=== PATIENT | female | born 2000 | race Caucasian/White ===

== ENCOUNTER 2024-07-11 17:58 | Emergency (ER) | payer BC, SELFPAY ==
[2024-07-11 18:38] VITALS: BP 108/78; PULSE 86; RESP 16; TEMP 37.1; O2SAT 99
--- NOTE | 2024-07-11 18:41 | ED.URI ---
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 Symptoms began last night, worsened throughout the day today. Patient is declining COVID and flu testing. Requesting strep only. Reports worse symptoms are headache, body aches, fever, sore throat. Has mild cough. Has not been taking anything for symptoms. Voices no other concerns or complaints today. Related Data Home Medications Medication Instructions Recorded Confirmed lisdexamfetamine 50 mg chewable 50 mg PO DAILY 07/11/24 07/11/24 tablet (Vyvanse) Allergies Allergy/AdvReac Type Severity Reaction Status Date / Time cashew nut Allergy Anaphylaxis Verified 07/11/24 18:34 Review of Systems Review of Systems: All systems reviewed & are unremarkable except as noted in HPI and below Constitutional: Constitutional: Reports as per HPI and Reports no additional constitutional complaints ENT: Reports system reviewed and no additional complaints, except as documented, Reports as per HPI, Reports nasal congestion, Reports nasal discharge and Reports sore throat Cardiovascular: Cardiovascular: Reports no additional cardiovascular complaints Respiratory: Respiratory: Reports no additional respiratory complaints and Reports cough Gastrointestinal: Gastrointestinal: Reports no additional gastrointestinal complaints PMFSH Comments At the time of my signature, I reviewed and agree with the nursing past medical, surgical, social, and family history. There is no relevant family history pertinent to the patient complaint. Exam Const: General: cooperative, no acute distress, alert and awake Orientation/consciousness: oriented to person, oriented to place and oriented to time HENMT: Head: normal to inspection Ears: TM's normal bilaterally Mouth: Yes moist mucous membranes Throat: posterior oropharynx abnormal erythema Resp: Effort & Inspection: normal respiratory effort and able to speak in complete sentences Auscultation: clear to auscultation bilaterally, no crackles, no rales, no rhonchi and no wheezes Cardio: Palpation: normal PMI Rate: regular rate Rhythm: regular rhythm Heart sounds: S1 normal heart sound present and S2 normal heart sound present Neuro: General: oriented to person, oriented to place and oriented to time Cranial nerves: Yes CN's II-XII intact bilaterally Psych: Appearance: grossly normal Thought process: Normal thought process present Insight: Good insight present (Psych) Judgement: Good judgement present (Psych) Course Course Level of Care: Express Care Visit Vital Signs Vital signs: Vital Signs Temperature 98.7 F 07/11/24 18:38 Pulse Rate 86 07/11/24 18:38 Respiratory Rate 16 07/11/24 18:38 Blood Pressure 108/78 07/11/24 18:38 Pulse Oximetry 99 07/11/24 18:38 Temperature 98.7 F 07/11/24 18:38 Pulse Rate 86 07/11/24 18:38 Respiratory Rate 16 07/11/24 18:38 Blood Pressure 108/78 07/11/24 18:38 Pulse Oximetry 99 07/11/24 18:38 Reviewed MDM - URI/Sore Throat MDM Narrative Medical decision making narrative: Negative strep, culture pending. Reassuring physical exam. Follow with primary care provider. Emergency department for new or worsening symptoms. Discharge instructions reviewed with patient, as well as provided in writing per nursing staff. The instructions also include specific and strict return/GO TO THE ER as well as f/u information. All questions have been answered, and the patient deny any further questions with discharge and discharge plan. Some parts of this dictation were generated by voice recognition software and may contain typographical and/o
[2024-07-11 18:49] LABS: EDSTREPNEGPOS1 Negative (Negative)
== END 2024-07-11 19:17 | disposition home or self-care (01) ==
PROVIDERS: Emergency Provider Nurse Practitioner Family
DX: B34.9 Viral infection, unspecified (principal); F90.9 Attention-deficit hyperactivity disorder, unspecified type
CPT/HCPCS: 87081; 87880; 99203; G0463

== ENCOUNTER 2024-07-14 23:06 | Emergency (ER) | payer SELFPAY ==
[2024-07-14 23:12] VITALS: BP 112/73; PULSE 102; RESP 19; TEMP 37.3; O2SAT 100
--- NOTE | 2024-07-15 00:30 | PC.NURSE ---
Pt and mother approached triage desk saying that they were going to leave due to wait times. Pt advised to be seen at pcp or ED for new or worsening symptoms.
== END 2024-07-15 01:05 | disposition left against medical advice (07) ==
LOC: ANHED 07-15 00:51
DX: R05.9 Cough, unspecified (principal)
CPT/HCPCS: 99199

== ENCOUNTER 2024-07-15 11:07 | Emergency (ER) | payer BC, SELFPAY ==
--- NOTE | ~2024-07-15 | XR_ITS ---
EXAMINATION: XR chest 2V DATE: 07/15/2024 12:00 INDICATION: Cough and fever. TECHNIQUE: Frontal and lateral views of the chest were obtained. COMPARISON: None. FINDINGS: There is no pneumonia, pleural effusion, or pneumothorax. The heart size is normal. IMPRESSION: 1. No acute cardiopulmonary disease. Reviewed, dictated and finalized at location A.
[2024-07-15 11:20] VITALS: BP 103/62; PULSE 94; RESP 16; TEMP 37.3; O2SAT 99
--- NOTE | 2024-07-15 11:53 | ED.URI ---
HPI - URI/Sore Throat General Chief Complaint: Upper Respiratory Infection Stated Complaint: cough Time Seen by Provider: 07/15/24 11:35 Source: patient, RN notes reviewed and old records reviewed Mode of arrival: ambulatory Limitations: no limitations History of Present Illness HPI Narrative: 24 year old female who presents to [facility] care with complaints of having 5 day history of fever, cough which is at times productive. She was seen in the clinic Sunday night and tested for strep, patient refused COVID and Flu testing .Patient has taken some Tylenol for fever but has not taken any medication for her cough. Patient reports that symptoms started on night and has had increased cough and fevers up to 101.8F highest which was last night. Patient reports that she went to the ED last night due to fever but left before being seen because of wait time. Patient reports that she didn't take any Tylenol this morning so would have true reading on her temperature which is 99.1F in clinic today. Patient states that she has lost about 8 pounds since being ill,does not have much appetite.reports that she is drinking fluids well. MD elicited complaint: fever and cough Onset (ago): day(s) (5) Severity: moderate Pain scale (0-10): 2 Description of mucous: clear Able to tolerate fluids by mouth: Yes Associated symptoms: fever and cough Treatments prior to arrival: acetaminophen Related Data Home Medications Medication Instructions Recorded Confirmed lisdexamfetamine 50 mg chewable 50 mg PO DAILY 07/11/24 07/15/24 tablet (Vyvanse) Allergies Allergy/AdvReac Type Severity Reaction Status Date / Time cashew nut Allergy Anaphylaxis Verified 07/15/24 11:22 Review of Systems Review of Systems: CONSTITUTIONAL: Reports malaise, chills, sweats, or fever. EYES: Denies visual changes, redness, or discharge. ENT: Reports rhinorrhea, congestion,no sinus pain, no otalgia and no present sore throat. CARDIOVASCULAR: Denies chest pain, palpitations, or edema. RESPIRATORY: Reports cough.? Denies dyspnea. GASTROINTESTINAL: Denies abdominal pain, nausea, vomiting, diarrhea, states decreased appetite SKIN: Denies rash or itching. MUSCULOSKELETAL: Denies myalgia. NEUROLOGIC: Denies headache. All systems reviewed & are unremarkable except as noted in HPI and below PMFSH Past Medical History Medical History ADHD (attention deficit hyperactivity disorder) Anorexia Social History Social History (Updated 07/15/24 @ 14:53 by Prerna Dumont NP) Smoking status: Never smoker Alcohol intake: unknown Substance use: unknown Gender identity (if verbalized by the patient): Female Comments At time of signature, agree with nursing past medical, surgical, social and family history. There is no relevant family history pertinent to the presenting complaint Exam Narrative: GENERAL: Well-appearing, well-nourished, and in no acute distress. HEAD: Normocephalic EYES: PERRLA, conjunctivae clear ENT: Nares clear, turbinates edematous and erythematous, clear discharge. Mucous membranes moist. TM pearly hernandez with dull light reflex bilaterally; no tragal tenderness. Oropharynx erythematous without lesions. Tonsils not enlarged and without exudate, no drooling, no hoarseness, no trismus, uvula midline., some post nasal drainage noted. NECK: Supple. No lymphadenopathy CHEST: Clear to auscultation, breath sounds equal. No wheezing, rhonchi, rales, or stridor. No respiratory distress, speaks in full sentences.cough noted SAO2 99% on room air HEART: Regular rate and rhythm. No murmur heard. SKIN: Warm, dry, no rash. NEURO: Alert and oriented x3. PSYCH: Normal mood and affect, anxious Course Course Emergency Course: Patient is aware of diagnosis, understands and agrees to treatment plan.? Anticipatory guidance given.? Patient agrees to follow-up as directe
== END 2024-07-15 12:28 | disposition home or self-care (01) ==
PROVIDERS: Emergency Provider Registered Nurse
DX: J06.9 Acute upper respiratory infection, unspecified (principal); R05.1 Acute cough; F90.9 Attention-deficit hyperactivity disorder, unspecified type
CPT/HCPCS: 71046; 99213; G0463

== ENCOUNTER 2024-07-17 03:58 | Emergency (ER) | payer BC, SELFPAY ==
--- NOTE | ~2024-07-17 | XR_ITS ---
Clinical Indication: Fever, cough PA and lateral views of the chest: Comparison: 07/15/2024 Findings: Possible focal retrocardiac airspace opacity. Right lung clear. Cardiomediastinal silhouet te is within normal limits. Bones and soft tissues are unremarkable. Impression: Possible focal left lower lobe atelectasis versus pneumonia. Correlate clinically. Reviewed, dictated and finalized at location . Impression: Possible focal left lower lobe atelectasis versus pneumonia. Correlate clinical ly.
[2024-07-17 03:59] VITALS: BP 102/64; PULSE 128; RESP 19; TEMP 38.2; O2SAT 97
[2024-07-17 04:53] LABS: Strep Group A RT-PCR NOT DETECTED (Negative)
[2024-07-17 06:16] VITALS: RESP 15; O2SAT 100
[2024-07-17 06:26] VITALS: BP 98/60; PULSE 94; RESP 16; TEMP 37.9; O2SAT 100
--- NOTE | 2024-07-17 06:44 | ED.GENADULT ---
HPI - General Adult General Chief complaint: Fever Stated complaint: fever Time Seen by Provider: 07/17/24 04:23 History of Present Illness HPI narrative: 24-year-old female presents to the emergency department complaining of cough congestion and fever that is been ongoing for the last 7 days. Patient reports that she has had follow-up with multiple urgent cares and feels that her symptoms are continue to worsen. Related Data Home Medications Medication Instructions Recorded Confirmed lisdexamfetamine 50 mg chewable 50 mg PO DAILY 07/11/24 07/15/24 tablet (Vyvanse) Allergies Allergy/AdvReac Type Severity Reaction Status Date / Time cashew nut Allergy Anaphylaxis Verified 07/17/24 03:58 Review of Systems Review of Systems: All systems reviewed & are unremarkable except as noted in HPI and below PMFSH Past Medical History Medical History ADHD (attention deficit hyperactivity disorder) Anorexia Social History Social History (Updated 07/15/24 @ 14:53 by Prerna Dumont NP) Smoking status: Never smoker Alcohol intake: unknown Substance use: unknown Gender identity (if verbalized by the patient): Female Exam Narrative: APPEARANCE: Well appearing, no pain, no distress, well-nourished. HEAD: normocephalic, atraumatic. EYES: PERRLA/EOMI, conjunctivae clear. NOSE: Normal no drainage EARS:TMS clear with good light reflex. THROAT: Pharynx clear, no exudate. NECK: Supple. No adenopathy, no masses. RESPIRATORY: Airway patent, respirations nonlabored. Clear to auscultation bilaterally, no rales, rhonchi, wheezing. CARDIOVASCULAR: Regular rate and rhythm without murmurs rubs or gallops. ABDOMINAL: Soft, nontender, nondistended, normal bowel sounds MUSCULOSKELETAL: Moves all extremities. Strength/ROM intact, No edema, No calf tenderness. NEURO: Alert. Cranial nerves II through XII intact. Grossly intact SKIN: Warm, dry. Normal Color Course Vital Signs Vital signs: Vital Signs Temperature 100.8 F H 07/17/24 03:59 Pulse Rate 128 H 07/17/24 03:59 Respiratory Rate 19 07/17/24 03:59 Blood Pressure 102/64 07/17/24 03:59 Pulse Oximetry 97 07/17/24 03:59 Oxygen Delivery Room Air 07/17/24 03:59 Temperature 100.2 F H 07/17/24 06:26 Pulse Rate 85 07/17/24 07:12 Respiratory Rate 18 07/17/24 07:12 Blood Pressure 98/60 L 07/17/24 06:26 Pulse Oximetry 100 07/17/24 06:26 Oxygen Delivery Room Air 07/17/24 03:59 Medical Decision Making [facility] Narrative Medical decision making narrative: 24-year-old female presents emergency department for evaluation for cough and congestion this been going on for greater than 1 week. X-ray was concerning for pneumonia. Patient was started on Augmentin and a azithromycin and patient was also provided albuterol inhaler and Tessalon Perles for cough suppression. Patient was comfortable the plan for discharge and close follow-up. Differential Diagnosis Differential Diagnosis: COVID, influenza, RSV, pneumonia, pneumothorax Vital Signs Vital Signs: Vital Signs Temperature 100.8 F H 07/17/24 03:59 Pulse Rate 128 H 07/17/24 03:59 Respiratory Rate 19 07/17/24 03:59 Blood Pressure 102/64 07/17/24 03:59 Pulse Oximetry 97 07/17/24 03:59 Oxygen Delivery Room Air 07/17/24 03:59 Temperature 100.2 F H 07/17/24 06:26 Pulse Rate 85 07/17/24 07:12 Respiratory Rate 18 07/17/24 07:12 Blood Pressure 98/60 L 07/17/24 06:26 Pulse Oximetry 100 07/17/24 06:26 Oxygen Delivery Room Air 07/17/24 03:59 Lab Data Labs: Lab Results 07/17/24 Range/Units 04:13 Influenza A (RT-PCR) Negative (Negative) Influenza B (RT-PCR) Negative (Negative) RSV (RT-PCR) Negative (Negative) SARS-CoV-2 RNA (RT-PCR) Negative (Negative) Group A Strep (PCR) Not detected (Negative) Discharge Plan Discharge Clinical Impression: Pneumon
[2024-07-17] MEDS: ALBUTEROL SULFATE NEB 2.5 MG/3 ML INH INHALATION (06:54)
[2024-07-17 06:56] VITALS: PULSE 88; RESP 18
[2024-07-17] MEDS: AMOXICILLIN/CLAVULANATE K 875-125 MG TAB 1 TABLET PO (07:01)
[2024-07-17] MEDS: BENZONATATE 100 MG CAPSULE PO (07:01)
[2024-07-17] MEDS: KETOROLAC 30 MG/ML VIAL (*BKC) IM (07:01)
[2024-07-17] MEDS: AZITHROMYCIN 250 MG TABLET 500 MG PO (07:01)
[2024-07-17 07:12] VITALS: PULSE 85; RESP 18
[2024-07-17 07:25] LABS: Influenza A QL RT-PCR Negative (Negative); Influenza B QL RT-PCR Negative (Negative); RSV RNA, RT-PCR Negative (Negative); SARS-CoV-2 RNA PCR Negative (Negative)
== END 2024-07-17 07:27 | disposition home or self-care (01) ==
PROVIDERS: Emergency Provider Emergency Medicine
DX: J18.9 Pneumonia, unspecified organism (principal); Z20.822 Contact with and (suspected) exposure to COVID-19; F90.9 Attention-deficit hyperactivity disorder, unspecified type; Z79.899 Other long term (current) drug therapy
CPT/HCPCS: 71046; 87637; 87651; 94640; 94664; 96372; 99283; A9270; J1885

== ENCOUNTER 2024-07-29 16:15 | Emergency (ER) | payer SELFPAY ==
[2024-07-29 16:17] VITALS: BP 119/72; PULSE 73; RESP 21; TEMP 36.4; O2SAT 99
--- NOTE | 2024-07-29 16:30 | ED.ALLEREA ---
HPI - Allergic Reaction General Chief complaint: Allergic Reaction Stated complaint: Alergic Reaction Time Seen by Provider: 07/29/24 16:20 Source: patient Mode of arrival: ambulatory Limitations: no limitations History of Present Illness HPI narrative: Brenna is a 24-year-old female patient presenting to the clinic today with complaints of a possible allergic reaction. She reports that she ate a homemade protein bar made of peanut butter at the [facility] across the street and developed some tingling in the roof of her mouth. 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 She is concerned that there may be a cross contamination. Has some slight tingling to her tongue as well. Denies any difficulty swallowing, shortness of breath, difficulty breathing, or tongue swelling. She does not have her EpiPen at this time and felt as though it would be better to come over here to be evaluated that and go across town and get Benadryl. Related Data Home Medications Medication Instructions Recorded Confirmed lisdexamfetamine 50 mg chewable 50 mg PO DAILY 07/11/24 07/29/24 tablet (Vyvanse) Allergies Allergy/AdvReac Type Severity Reaction Status Date / Time cashew nut Allergy Anaphylaxis Verified 07/29/24 16:23 Review of Systems Review of Systems: Pertinent positives per HPI. Patient denies any fever, chills, rash, headache, visual changes, dizziness, cough, runny nose, sore throat, shortness of breath, chest pain, palpitations, nausea, vomiting, diarrhea, constipation, abdominal pain, or any urinary issues. PMFSH Past Medical History Medical History ADHD (attention deficit hyperactivity disorder) Anorexia Social History Social History Smoking status: Never smoker Alcohol intake: unknown Substance use: unknown Gender identity (if verbalized by the patient): Female Comments At the time of my signature, I reviewed and agree with the nursing past medical, surgical, social, and family history. There is no relevant family history pertinent to the patient complaint. Exam Narrative: General: Well-developed, well nourished, in no apparent distress Head: Normocephalic, atraumatic Eyes: Pupils equally round and reactive to light bilaterally, EOM intact, sclera and conjunctive clear, no discharge, lids normal Ears: TMs intact and clear, ear canals clear, no drainage, grossly hearing normal. Nose: Nares patent, no discharge, no inflammation, no sinus tenderness. Mouth: Oropharynx without lesions or masses, good dentition, MMM. Neck: Supple, trachea midline, no enlargement of anterior or posterior cervical nodes, no thyroid masses or goiter palpable. Cardio: Regular rate and rhythm, s1 and s2 normal, no murmur appreciated. Resp: Clear to auscultation bilaterally anteriorly and posteriorly, no rhonchi, rales, wheezing or rubs Course Course Emergency Course: Portions of this record may have been created with voice recognition software. Level of Care: Express Care Visit Vital Signs Vital signs: Vital signs reviewed MDM - Allergic Reaction MDM Narrative Medical decision making narrative: At the time of visit patient is resting comfortably on the exam table. Patient appears to be nontoxic. Plan: Patient is states that her tongue and refer her mouth or tingling. No sign of respiratory distress, tongue swelling, drooling, or difficulty breathing. Oxygenation is 99% on room air with clear lung sounds. Patient was given Benadryl 50 mg IM, Solu-Medrol 125 mg IM, and oral Pepcid in the clinic today. Will send in prescription for prednisone and Pepcid and have patient continue Benadryl. Supportive measures were discussed with the patient and they voiced understanding discharge instructions and agrees to treatment plan. Return precautions reviewed Differential Diagnosis Differential diagnosis: Likely anaphylax
[2024-07-29] MEDS: methylPREDNISolone SOD SUCC 125 MG VIAL IM (16:38)
[2024-07-29] MEDS: FAMOTIDINE 20 MG TABLET 40 MG PO (16:39)
[2024-07-29] MEDS: diphenhydrAMINE HCl INJ 50 MG/ML VIAL IM (16:39)
[2024-07-29 17:30] VITALS: BP 112/70; PULSE 70; RESP 18; O2SAT 99
== END 2024-07-29 17:30 | disposition home or self-care (01) ==
PROVIDERS: Emergency Provider Nurse Practitioner Family
DX: T78.40XA Allergy, unspecified, initial encounter (principal); F90.9 Attention-deficit hyperactivity disorder, unspecified type
CPT/HCPCS: 96372; 99214; A9270; G0463; J1200; J2919

== ENCOUNTER 2024-07-29 23:33 | Emergency (ER) | payer SELFPAY ==
[2024-07-29 23:33] VITALS: BP 117/69; PULSE 81; RESP 18; TEMP 36.2; O2SAT 98
[2024-07-29 23:44] VITALS: O2SAT 97
--- NOTE | 2024-07-30 00:57 | ED.ALLEREA ---
HPI - Allergic Reaction General Chief complaint: Allergic Reaction Stated complaint: allergy - exposure to cashew Time Seen by Provider: 07/29/24 23:42 Source: patient Mode of arrival: ambulatory Limitations: no limitations History of Present Illness HPI narrative: Patient is a 24-year-old female who presents the ED with concern for an allergic reaction. 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 She reports she was exposed to cashews today from a friend's homemade granola bar. States immediately after eating a granola bar she began having redness and flushing of her face, diffuse hives, tingling in her mouth. She was seen at an urgent care this afternoon and given Solu-Medrol, Benadryl, Pepcid. She states symptoms improved significantly. Approximately 1 hour prior to arrival, patient began having tingling of her lips, roof of her mouth, and tip of her to tongue. She did not have any allergy medications at home and prompted here for further evaluation. At the time of my eval, patient states sxs are resolved. Denies difficulty breathing or swallowing, denies swelling/tingling of lips/throat. Denies further rash or hives. Denies itching. Related Data Home Medications Medication Instructions Recorded Confirmed lisdexamfetamine 50 mg chewable 50 mg PO DAILY 07/11/24 07/29/24 tablet (Vyvanse) Allergies Allergy/AdvReac Type Severity Reaction Status Date / Time banana Allergy Anaphylaxis Verified 07/29/24 23:43 cashew nut Allergy Anaphylaxis Verified 07/29/24 23:43 shrimp Allergy Anaphylaxis Verified 07/29/24 23:43 Review of Systems Review of Systems: All systems reviewed & are unremarkable except as noted in HPI. All systems reviewed & are unremarkable except as noted in HPI and below PMFSH Past Medical History Medical History ADHD (attention deficit hyperactivity disorder) Anorexia Social History Social History Smoking status: Never smoker Alcohol intake: unknown Substance use: unknown Gender identity (if verbalized by the patient): Female Exam Narrative: GENERAL: Well appearing, thin, non-toxic, in no acute distress. HEAD: Normocephalic, atraumatic. ENT: No swelling of oral mucosa. MMs moist. RESPIRATORY: Airway patent, respirations nonlabored. Clear to auscultation bilaterally, no rales, rhonchi, wheezing. CARDIOVASCULAR: Regular rate and rhythm without murmurs, rubs, or gallops. MUSCULOSKELETAL: Moves all extremities. No gross deformities. SKIN: Warm, dry, normal color. No rash or urticaria. NEURO: A&O X3. Speech clear. PSYCHIATRIC: Appropriate mood and affect. Normal interaction. Course Vital Signs Vital signs: Vital Signs Temperature 97.1 F L 07/29/24 23:33 Pulse Rate 81 07/29/24 23:33 Respiratory Rate 18 07/29/24 23:33 Blood Pressure 117/69 07/29/24 23:33 Pulse Oximetry 98 07/29/24 23:33 Oxygen Delivery Room Air 07/29/24 23:33 Temperature 97.1 F L 07/29/24 23:33 Pulse Rate 76 07/30/24 01:09 Respiratory Rate 18 07/30/24 01:09 Blood Pressure 127/73 07/30/24 01:09 Pulse Oximetry 99 07/30/24 01:09 Oxygen Delivery Room Air 07/29/24 23:44 MDM - Allergic Reaction MDM Narrative Medical decision making narrative: VSS. No signs of anaphylaxis or ongoing allergic reaction by the time of my evaluation. Patient states symptoms are currently resolved. She was prescribed a short steroid course from urgent care today which she is due to begin tomorrow. She would like a dose of Benadryl here in the ED. This was given. Advised to buy Benadryl for home and use this as needed for further itching or further rash/hives. Advised to take steroids as prescribed. Discussed signs and symptoms of anaphylaxis and indications to use EpiPen at home. Given strict return precautions. She agrees with plan. Discharged in stab
[2024-07-30] MEDS: diphenhydrAMINE HCl CAP 25 MG CAPSULE PO (01:01)
[2024-07-30 01:09] VITALS: BP 127/73; PULSE 76; RESP 18; O2SAT 99
== END 2024-07-30 01:10 | disposition home or self-care (01) ==
PROVIDERS: Emergency Provider Physician Assistant
DX: T78.1XXA Other adverse food reactions, not elsewhere classified, initial encounter (principal); F90.9 Attention-deficit hyperactivity disorder, unspecified type; Z79.899 Other long term (current) drug therapy
CPT/HCPCS: 99283; A9270

== ENCOUNTER 2024-08-25 23:57 | Emergency (ER) | payer BC, SELFPAY ==
[2024-08-25 23:58] VITALS: BP 107/65; PULSE 59; RESP 16; TEMP 36.5; O2SAT 100
--- NOTE | 2024-08-26 00:06 | PC.NURSE ---
Bella @ [facility] notified - [id number] - Pt is cleared, no concerns on their end.
--- NOTE | 2024-08-26 00:14 | PC.NURSE ---
edp july to see pt in triage bay 2
--- NOTE | 2024-08-26 00:19 | ED_ITS ---
HPI - Recheck/Abnormal Lab/Rx General Chief Complaint: Recheck/Abnormal Lab/Rx Stated Complaint: Over dosed on antihistamines Time Seen by Provider: 08/26/24 00:13 History of Present Illness HPI narrative: 24-year-old female with history of ADHD presents emergency department with concerns for taking too much Trina and Benadryl. Patient states she took 180 mg of Trina at 4:00 p.m., then took another 180 mg today at 12:00 p.m., then took 25 mg of Benadryl at 9:00 p.m. tonight. She states she felt sleepy so came to the ED because she became anxious that she had overdosed. Upon my evaluation she has no other complaints and states she feels better. She states she was taking these antihistamines because she has hives to her back. 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 Denies lip or tongue swelling. Denies difficulty breathing, changes in detergents, lotions. States she used a different shampoo a couple days ago which she is concerned may be the cause. States she went to urgent care earlier today and was prescribed steroids but has yet to filler picker from pharmacy. Related Data Home Medications Medication Instructions Recorded Confirmed lisdexamfetamine 50 mg chewable 50 mg PO DAILY 07/11/24 07/29/24 tablet (Vyvanse) EpiPen 08/26/24 Allergies Allergy/AdvReac Type Severity Reaction Status Date / Time banana Allergy Anaphylaxis Verified 08/26/24 00:04 cashew nut Allergy Anaphylaxis Verified 08/26/24 00:04 shrimp Allergy Anaphylaxis Verified 08/26/24 00:04 Review of Systems Review of Systems: All systems reviewed & are unremarkable except as noted in HPI and below PMFSH Past Medical History Medical History ADHD (attention deficit hyperactivity disorder) Anorexia Social History Social History Smoking status: Never smoker Alcohol intake: unknown Substance use: unknown Gender identity (if verbalized by the patient): Female Exam Narrative: GENERAL: Well-appearing, well-nourished, and in no acute distress. HEAD: Normocephalic, atraumatic. EYES: EOMI. ENT: Nares clear, no rhinorrhea or epistaxis. Mucous membranes moist. No lip or tongue swelling, no pharyngeal swelling NECK: Supple. CHEST: Clear to auscultation. No respiratory distress. Patient speaking in full sentences in no respiratory distress HEART: Regular rate and rhythm. No murmur heard. Normal peripheral pulses. EXTREMITIES: Normal range of motion. No edema. SKIN: Scattered few small urticaria to the posterior shoulders NEURO: No focal deficits. Alert and oriented x3 Course Vital Signs Vital signs: Vital Signs Temperature 97.7 F 08/25/24 23:58 Pulse Rate 59 L 08/25/24 23:58 Respiratory Rate 16 08/25/24 23:58 Blood Pressure 107/65 08/25/24 23:58 Pulse Oximetry 100 08/25/24 23:58 Oxygen Delivery Room Air 08/25/24 23:58 Temperature 97.7 F 08/25/24 23:58 Pulse Rate 59 L 08/25/24 23:58 Respiratory Rate 16 08/25/24 23:58 Blood Pressure 107/65 08/25/24 23:58 Pulse Oximetry 100 08/25/24 23:58 Oxygen Delivery Room Air 08/25/24 23:58 MDM - Recheck/Abnormal Lab/Rx MDM Narrative Medical decision making narrative: 24-year-old female presents emergency department with concerns for antihistamine overdose after taking 180 mg of Trina yesterday at 4:00 p.m., 180 mg of Trina today at 12:00 p.m., and 25 mg of Benadryl at 9:00 p.m. tonight. Upon m y evaluation she is afebrile. Vitals are stable. Poison control contacted and cleared the patient. She has no signs of anaphylaxis on exam. Advised her to filler picker her steroids from pharmacy and follow-up with her PCP. Discussed strict ED return precautions including use of her EpiPen. Advised her to take medications only as they are directed on the bottle. Discharge Plan Discharge Clinical Impression: Urticaria Patient Disposition: Home, Self-Care Condition: Stable Instructions: Antibiotic Form, Antihistamine (By mouth), Urticaria (ED) Additional Instructions: Follow-up with your primary care provider. Return to the emergency department if you develop lip, tongue or throat swelling, difficulty breathing or use your EpiPen. Please follow medication as they are directed on the bottle. Prescriptions: No Action lisdexamfetamine [Vyvanse] 50 mg Tablet,Chewable 50 mg PO DAILY prednisone 20 mg tablet 40 mg PO DAILY 5 Days Qty: 10 0RF famotidine [Pepcid] 40 mg tablet 40 mg PO DAILY 5 Days Qty: 5 0RF albuterol sulfate 90 mcg/actuation HFA aerosol inhaler 1 inh inhalation QID PRN (Reason: shortness of breath or wheezing) Qty: 6.7 0RF EpiPen Follow-up/Referrals: PHYSICIAN,EXAMINATION SCORER [Primary Care Provider] -
== END 2024-08-26 00:36 | disposition home or self-care (01) ==
PROVIDERS: Emergency Provider Physician Assistant
DX: L50.9 Urticaria, unspecified (principal); F90.9 Attention-deficit hyperactivity disorder, unspecified type; Z91.018 Allergy to other foods; Z79.899 Other long term (current) drug therapy
CPT/HCPCS: 99281

== ENCOUNTER 2024-08-31 23:04 | Emergency (ER) | payer BC, SELFPAY ==
[2024-08-31 23:06] VITALS: BP 109/78; PULSE 65; RESP 15; TEMP 36.7; O2SAT 100
[2024-09-01 01:14] VITALS: BP 110/70; PULSE 60; RESP 12; TEMP 36.6; O2SAT 100
--- NOTE | 2024-09-01 02:39 | PC.NURSE ---
Patient advised that they were leaving. Patient had a steady gait upon exiting waiting room.
== END 2024-09-01 02:39 | disposition left against medical advice (07) ==
LOC: ANHED 09-01 02:42
PROVIDERS: PCP Family Medicine
DX: T78.40XA Allergy, unspecified, initial encounter (principal); X58.XXXA Exposure to other specified factors, initial encounter
CPT/HCPCS: 99199